=== PATIENT | female | born 2000 | race Caucasian/White ===

== ENCOUNTER 2020-07-25 21:26 | Emergency (ER) | payer OTHER ==
[~2020-07-25 21:26] MED LIST: COLACE 100MG C100 MG PO; DEPO-ESTRADIO5 MG/ML IM; IBUPROFEN600 MG PO; NORCO 5-325 TA1 EACH PO; TESTOSTERON100 MG/ML IM
== END 2020-07-26 12:15 | disposition other institution (70) ==
LOC: ER1 21:26
DX: S51.811A Laceration without foreign body of right forearm, initial encounter (principal); Z20.822 Contact with and (suspected) exposure to COVID-19; W26.9XXA Contact with unspecified sharp object(s), initial encounter
CPT/HCPCS: 12002; 99285; U0002

== ENCOUNTER 2020-12-12 21:52 | Emergency (ER) | payer OTHER ==
[2020-12-13 00:07] LABS: HEMOGLOBIN 12.3 gm/dl (12.3-15.3); RED BLOOD COUNT 4.5 M/UL (4.00-5.10); WHITE BLOOD COUNT 10.6 K/UL (4.5-11.0)
[2020-12-13 00:26] LABS: BUN/CREATININE RATIO 8 (0-10)
== END 2020-12-13 08:18 | disposition short-term general hospital (02) ==
LOC: ER1 21:52
PROVIDERS: Emergency Medicine
DX: S51.811A Laceration without foreign body of right forearm, initial encounter (principal); F32.9 Major depressive disorder, single episode, unspecified; Z20.822 Contact with and (suspected) exposure to COVID-19; Z23 Encounter for immunization; X78.8XXA Intentional self-harm by other sharp object, initial encounter
CPT/HCPCS: 80053; 80307; 83690; 83735; 84703; 85025; 90471; 90715; 99285; G0480; U0002

== ENCOUNTER 2021-02-02 15:24 | Emergency (ER) | payer OTHER ==
[2021-02-02] MEDS ORDERED: FLONASE ALLER15.8 ML (17:47)
[2021-02-02] MEDS ORDERED: MEDROL DOSEPAK 24 MG PO (17:47)
[2021-02-02] MEDS ORDERED: ZYRTEC10 MG PO (17:47)
[2021-02-02] MEDS ORDERED: DELSYM30 MG/5 ML PO (17:47)
== END 2021-02-02 17:49 | disposition home or self-care (01) ==
LOC: ER1 15:24
DX: J02.9 Acute pharyngitis, unspecified (principal); R51.9 Headache, unspecified; R05.9 Cough, unspecified; Z20.822 Contact with and (suspected) exposure to COVID-19
CPT/HCPCS: 99283; U0002

== ENCOUNTER 2021-02-22 17:50 | Emergency (ER) | payer OTHER ==
[~2021-02-22 17:50] MED LIST changes: +DELSYM30 MG/5 ML PO; +FLONASE ALLER15.8 ML; +MEDROL DOSEPAK 24 MG PO; +ZYRTEC10 MG PO
== END 2021-02-22 22:14 | disposition short-term general hospital (02) ==
LOC: ER1 17:50
PROVIDERS: Physician Assistant
DX: R45.851 Suicidal ideations (principal); Z20.822 Contact with and (suspected) exposure to COVID-19; R44.0 Auditory hallucinations
CPT/HCPCS: 80307; 81001; 84703; 99285; G0480; U0002

== ENCOUNTER 2021-07-25 18:53 | Observation (INO) | payer OTHER ==
[~2021-07-25] VITALS: Ht 165.1 cm; Wt 88.7 kg
[2021-07-25 19:35] LABS: HEMOGLOBIN 13.9 gm/dl (12.3-15.3); RED BLOOD COUNT 5.18 M/UL (4.00-5.10); WHITE BLOOD COUNT 13.3 K/UL (4.5-11.0)
[2021-07-25 19:48] LABS: BUN/CREATININE RATIO 18 (0-10)
[2021-07-26 02:17] LABS: RED BLOOD COUNT 4.92 M/UL (4.00-5.10); WHITE BLOOD COUNT 14.3 K/UL (4.5-11.0)
[2021-07-26 02:36] LABS: BUN/CREATININE RATIO 16 (0-10)
== END 2021-07-26 19:05 | disposition home or self-care (01) ==
LOC: ER1 18:53 → PROG CARE 20:38 → CDU 20:38 → PROG CARE 21:29
PROVIDERS: Preventive Medicine Occupational Medicine; ADMIT Internal Medicine
DX: T43.592A Poisoning by other antipsychotics and neuroleptics, intentional self-harm, initial encounter (principal); T43.222A Poisoning by selective serotonin reuptake inhibitors, intentional self-harm, initial encounter; F32.9 Major depressive disorder, single episode, unspecified; E87.2 Acidosis; Z91.51 Personal history of suicidal behavior; R41.0 Disorientation, unspecified; D72.829 Elevated white blood cell count, unspecified; Z20.822 Contact with and (suspected) exposure to COVID-19; R00.0 Tachycardia, unspecified
CPT/HCPCS: 36415; 36600; 51702; 71045; 80048; 80053; 80307; 81001; 82140; 82803; 83735; 84100; 84439; 84443; 84703; 85025; 85610; 85652; 87086; 93005; 96372; 96374; 96375; 96376; 99285; C9113; G0378; G0480; J1650; J2704; J3475; J3480; U0002